=== PATIENT | male | born 1965 | race Caucasian/White ===

== ENCOUNTER 2019-10-02 05:39 | Day surgery (SDC) | payer OTHER ==
[~2019-10-02 05:39] MED LIST: AMPICILLIN TRI500 MG PO; HUMULIN 70/30 PE3 ML SQ; MONOPRIL20 MG; NEURONTIN800 MG PO; NOVOLIN 70/30 110 ML SQ; SYMBICORT 16010.2 GM; ULTRAM ER100 MG; ULTRAM ER100 MG PO; [UNRECOGNIZED DRUG - OTHER]
== END 2019-10-02 11:18 | disposition home or self-care (01) ==
LOC: AMB-ENDOS 05:39 → ADM 10-06 15:30
DX: D13.1 Benign neoplasm of stomach (principal); K44.9 Diaphragmatic hernia without obstruction or gangrene; K31.7 Polyp of stomach and duodenum

== ENCOUNTER 2019-11-19 05:00 | Day surgery (SDC) | payer OTHER | END 2019-11-19 11:35 | disposition home or self-care (01) | LOC: AMB-ENDOS 05:00 | DX: D12.0 Benign neoplasm of cecum (principal); K57.30 Diverticulosis of large intestine without perforation or abscess without bleeding ==

== ENCOUNTER 2019-11-20 04:50 | Day surgery (SDC) | payer OTHER ==
[2019-11-21] MEDS ORDERED: LANTUS SOL100 UNIT/1 (08:07)
== END 2019-11-20 10:00 | disposition home or self-care (01) ==
LOC: AMB-ENDOS 04:50
DX: D13.2 Benign neoplasm of duodenum (principal)

== ENCOUNTER 2019-11-21 08:02 | Inpatient (IN) | payer OTHER ==
[~2019-11-21] VITALS: Ht 167.6 cm; Wt 126.6 kg
[2019-11-21] MEDS ORDERED: LANTUS SOL100 UNIT/1 (08:07)
== END 2019-11-25 17:30 | disposition home or self-care (01) | DRG 440 ==
LOC: ER 08:02 → SEC-K 21:00 → SURG 21:00
PROVIDERS: ADMIT Internal Medicine
PROC: BW21ZZZ Computerized Tomography (CT Scan) of Abdomen and Pelvis (ICD-10-PCS; principal; 2019-11-21)
PROC: BW40ZZZ Ultrasonography of Abdomen (ICD-10-PCS; 2019-11-21)
DX: K85.80 Other acute pancreatitis without necrosis or infection (principal); E11.65 Type 2 diabetes mellitus with hyperglycemia; E11.42 Type 2 diabetes mellitus with diabetic polyneuropathy

== ENCOUNTER → 2021-02-15 | Outpatient (CLI) | payer OTHER ==
[~2021-02-15] MED LIST changes: +LANTUS SOL100 UNIT/1
== END | disposition home or self-care (01) ==
LOC: PPH VACUNA
DX: Z23 Encounter for immunization (principal)

== ENCOUNTER 2021-09-09 08:00 | Outpatient (CLI) | payer OTHER | END 2021-09-09 08:30 | disposition home or self-care (01) | LOC: PPH VACUNA 08:00 | PROVIDERS: ATTEND Emergency Medicine Pediatric Emergency Medicine | DX: Z23 Encounter for immunization (principal) ==

== ENCOUNTER 2022-02-14 08:00 | Outpatient (CLI) | payer OTHER | END 2022-02-14 08:30 | disposition home or self-care (01) | LOC: PPH VACUNA 08:00 | PROVIDERS: ATTEND Emergency Medicine Pediatric Emergency Medicine | DX: Z23 Encounter for immunization (principal) ==

== ENCOUNTER 2022-03-06 06:00 | Day surgery (SDC) | payer OTHER | END 2022-03-06 10:15 | disposition home or self-care (01) | LOC: AMB-ENDOS 06:00 | PROVIDERS: ATTEND Internal Medicine Gastroenterology | DX: Z86.010 Personal history of colon polyps (principal); Z80.0 Family history of malignant neoplasm of digestive organs ==

== ENCOUNTER 2022-03-07 06:32 | Day surgery (SDC) | payer OTHER | END 2022-03-07 10:50 | disposition home or self-care (01) | LOC: AMB-ENDOS 06:32 | PROVIDERS: ATTEND Internal Medicine Gastroenterology | DX: K29.80 Duodenitis without bleeding (principal); K29.70 Gastritis, unspecified, without bleeding ==

== ENCOUNTER 2022-08-18 09:20 | Outpatient (CLI) | payer OTHER | END 2022-08-18 09:30 | disposition home or self-care (01) | LOC: PPH VACUNA 09:20 | PROVIDERS: ATTEND Emergency Medicine Pediatric Emergency Medicine | DX: Z23 Encounter for immunization (principal) ==

== ENCOUNTER 2023-02-26 01:56 | Emergency (ER) | payer OTHER ==
[~2023-02-26] VITALS: Ht 172.7 cm; Wt 95.7 kg
[~2023-02-26 01:56] MED LIST changes: +AMOX-CLAV 875-1 EAC1 PO; +TOUJEO MAX300 UNIT/1 SQ
[2023-02-26] MEDS ORDERED: CLEOCIN HCL300 MG PO (05:27)
[2023-02-26] MEDS ORDERED: KETO10TA2 PO (05:27)
== END 2023-02-26 05:32 ==
LOC: ER 01:56
DX: K08.89 Other specified disorders of teeth and supporting structures (principal); E11.9 Type 2 diabetes mellitus without complications; Z79.4 Long term (current) use of insulin

== ENCOUNTER 2023-03-21 06:41 | Outpatient (CLI) | payer OTHER ==
[~2023-03-21 06:41] MED LIST changes: +CLEOCIN HCL300 MG PO; +KETO10TA2 PO
== END 2023-03-21 06:43 | disposition home or self-care (01) ==
LOC: LAB 06:41
PROVIDERS: ATTEND Internal Medicine Hematology & Oncology
DX: D50.8 Other iron deficiency anemias (principal); R79.9 Abnormal finding of blood chemistry, unspecified; K76.89 Other specified diseases of liver; I10 Essential (primary) hypertension; R74.02 Elevation of levels of lactic acid dehydrogenase [LDH]; D63.8 Anemia in other chronic diseases classified elsewhere; D55.0 Anemia due to glucose-6-phosphate dehydrogenase [G6PD] deficiency; D51.1 Vitamin B12 deficiency anemia due to selective vitamin B12 malabsorption with proteinuria; D51.0 Vitamin B12 deficiency anemia due to intrinsic factor deficiency; D63.1 Anemia in chronic kidney disease; E03.8 Other specified hypothyroidism; E06.3 Autoimmune thyroiditis; K91.2 Postsurgical malabsorption, not elsewhere classified; E08.65 Diabetes mellitus due to underlying condition with hyperglycemia

== ENCOUNTER 2023-03-21 07:37 | Outpatient (CLI) | payer OTHER | END 2023-03-21 07:44 | disposition home or self-care (01) | LOC: SONOGRAMA 07:37 | PROVIDERS: ATTEND Internal Medicine Hematology & Oncology | DX: E04.2 Nontoxic multinodular goiter (principal) ==

== ENCOUNTER 2023-05-15 10:54 | Outpatient (CLI) | payer OTHER | END 2023-05-15 13:47 | disposition home or self-care (01) | LOC: LAB 10:54 | PROVIDERS: ATTEND Internal Medicine Hematology & Oncology | DX: M35.89 Other specified systemic involvement of connective tissue (principal) ==

== ENCOUNTER → 2023-05-15 | Outpatient (CLI) | payer OTHER | END | disposition home or self-care (01) | LOC: MRI 12:00 | PROVIDERS: ATTEND Dermatology | DX: M35.89 Other specified systemic involvement of connective tissue (principal) | CPT/HCPCS: 70553 ==

== ENCOUNTER 2023-05-16 08:06 | Outpatient (CLI) | payer OTHER | END 2023-05-16 08:08 | disposition home or self-care (01) | LOC: LAB 08:06 | PROVIDERS: ATTEND Internal Medicine Hematology & Oncology | DX: D50.8 Other iron deficiency anemias (principal); R79.9 Abnormal finding of blood chemistry, unspecified; I10 Essential (primary) hypertension; R74.02 Elevation of levels of lactic acid dehydrogenase [LDH]; K76.89 Other specified diseases of liver; D51.3 Other dietary vitamin B12 deficiency anemia; D51.1 Vitamin B12 deficiency anemia due to selective vitamin B12 malabsorption with proteinuria; K91.2 Postsurgical malabsorption, not elsewhere classified; E08.65 Diabetes mellitus due to underlying condition with hyperglycemia ==

== ENCOUNTER 2023-06-27 08:16 | Day surgery (SDC) | payer OTHER | END 2023-06-27 13:50 | disposition home or self-care (01) | LOC: AMB-ENDOS 08:16 | PROVIDERS: ATTEND Internal Medicine Gastroenterology | DX: K29.00 Acute gastritis without bleeding (principal); K29.80 Duodenitis without bleeding; K31.7 Polyp of stomach and duodenum; Z20.822 Contact with and (suspected) exposure to COVID-19 ==

== ENCOUNTER 2023-06-28 10:03 | Day surgery (SDC) | payer OTHER | END 2023-06-28 14:05 | disposition home or self-care (01) | LOC: AMB-ENDOS 10:03 | PROVIDERS: ATTEND Internal Medicine Gastroenterology | DX: D12.2 Benign neoplasm of ascending colon (principal); Z86.010 Personal history of colon polyps; Z20.822 Contact with and (suspected) exposure to COVID-19 ==